=== PATIENT | female | born 1960 | race American Indian/Alaskan Native ===

== ENCOUNTER 2016-11-03 09:34 | Outpatient (CLI) | payer BC ==
--- NOTE | 2016-11-03 10:23 | Mammography Report ---
RIGHT DIGITAL DIAGNOSTIC MAMMOGRAM and RIGHT BREAST ULTRASOUND: 11/03/16 09:34:00 CLINICAL: Recalled for asymmetry. COMPARISON:10/08/16 screening FINDINGS: ML and spot compression MLO and CC views were performed. An oval circumscribed density persists on all views at 6 o'clock. Ultrasound of the right breast was performed and demonstrated a benign cyst at 6 o'clock 2.5 cm from the nipple. It measures 6 x 4 x 5 mm and correlates with the mammographic finding. No solid mass. IMPRESSION: Benign 6 mm right breast cyst. BI-RADS CATEGORY: 2 - - Benign RECOMMENDATION: Routine mammographic screening in one year. ACR BI-RADS MAMMOGRAPHIC CODES: 0 = Needs additional imaging evaluation; 1 = Negative; 2 = Benign; 3 = Probably benign; 4 = Suspicious; 5 = Malignant; 6 = Known biopsy-proven malignancy COMMENT: 1. Dense breast tissue, i.e., adenosis, fibrocystic changes, etc., may obscure an underlying neoplasm. 2. Approximately 10% of cancers are not detected with mammography. 3. A negative mammography report should not delay biopsy if a clinically suspicious mass is present. COMMENT: Patient follow-up letters are generated via our [employer] application.
== END 2016-11-03 09:35 | disposition home or self-care (01) ==
LOC: SPVWC 09:34
PROVIDERS: ATTEND Family Medicine
DX: N60.01 Solitary cyst of right breast (principal); R92.8 Other abnormal and inconclusive findings on diagnostic imaging of breast
CPT/HCPCS: 76642; G0206

== ENCOUNTER 2017-10-13 13:54 | Outpatient (CLI) | payer BC ==
--- NOTE | 2017-10-13 14:47 | Mammography Report ---
BILATERAL DIGITAL SCREENING MAMMOGRAM with CAD: 10/13/17 13:54:00 CLINICAL: Routine screening. COMPARISON:10/08/16 FINDINGS: The breasts are almost entirely fatty. No mass, architectural distortion or suspicious calcifications. IMPRESSION: No mammographic evidence of malignancy. BI-RADS CATEGORY: 1 - - Negative RECOMMENDATION: Routine mammographic screening in one year. COMMENT: Patient follow-up letters are generated by our [employer] application.
== END 2017-10-13 13:55 | disposition home or self-care (01) ==
LOC: SPVWC 13:54
PROVIDERS: ATTEND Surgery
DX: Z12.31 Encounter for screening mammogram for malignant neoplasm of breast (principal)
CPT/HCPCS: 77067; G0202

== ENCOUNTER 2018-01-22 15:22 | Outpatient (CLI) | payer BC ==
--- NOTE | 2018-01-23 09:46 | Magnetic Resonance Report ---
MR THORACIC SPINE WITHOUT CONTRAST HISTORY: Thoracic degenerative disc disease. TECHNIQUE: Multisequence, multiplanar MRI without IV gadolinium. COMPARISON: None. FINDINGS: There is normal height and alignment of the thoracic vertebral bodies. Normal bone marrow signal. No fracture or bone lesion. There is mild disc desiccation and narrowing at all levels. There is no evidence for significant bulging disc or focal herniation. The facet joints are in appropriate relationship. No significant facet arthropathy or facet hypertrophy is appreciated. There is moderate to severe unilateral thickening of the ligamentum flavum on the right side at T9-10 level. The ligamentum flavum measures up to 5 mm in thickness at this level and exerts mild mass effect on the right posterolateral thecal sac. No central canal stenosis is appreciated. There may be mild right neural foraminal narrowing at this level. The remainder of the thoracic ligaments are unremarkable. The thoracic spinal cord is normal size and signal intensity throughout. The conus terminates at the L1 level. IMPRESSION: No acute process. Minimal degenerative disc findings. No bulging disc or herniation. Focal thickening of the ligamentum flavum at the level of T9-10 with mild mass effect on the thecal sac as outlined above.
== END 2018-01-22 15:23 | disposition home or self-care (01) ==
LOC: MRI 15:22
PROVIDERS: ATTEND Family Medicine
DX: M51.34 Other intervertebral disc degeneration, thoracic region (principal)
CPT/HCPCS: 72146

== ENCOUNTER 2019-11-08 14:08 | Outpatient (CLI) | payer BC ==
--- NOTE | 2019-11-08 15:48 | Mammography Report ---
DIGITAL SCREENING MAMMOGRAM WITH CAD, 11/08/2019 INDICATION: Routine screening mammography. TECHNIQUE: Digital bilateral 2D mammography was obtained in the craniocaudal and mediolateral obliq ue projections. This examination was interpreted with the benefit of Computer-Aided Detection analysi s. COMPARISON: 10/20/2018 FINDINGS: Breast Density: The breasts are almost entirely fatty. There is no evidence of dominant mass, suspicious calcifications or architectural distortion in eithe r breast. IMPRESSION: No mammographic evidence of malignancy. Follow up recommendation: Routine yearly BI-RADS Category 1: Negative. A "normal" or negative report should not discourage follow up or biopsy of a clinically significant f inding. A written summary of these findings will be mailed to the patient. The patient will be entered into a mammography reporting system which will generate a reminder letter for the patient's next appointmen t at the appropriate interval. The [employer] recommends yearly mammograms starting at age 40 and continuing as l farida as a woman is in good health. Breast MRI is recommended for women with an approximate 20-25% or greater lifetime risk of breast cancer, including women with a strong family history of breast or ova fatoumata cancer or who have been treated for Hodgkin's disease. Signer Name: Kp Beard MD Signed: 11/08/2019 3:43 PM Workstation Name: [id number]
== END 2019-11-08 14:09 | disposition home or self-care (01) ==
LOC: SPVWC 14:08
PROVIDERS: ATTEND Surgery
DX: Z12.31 Encounter for screening mammogram for malignant neoplasm of breast (principal); N64.89 Other specified disorders of breast
CPT/HCPCS: 77067

== ENCOUNTER 2020-11-13 14:22 | Outpatient (CLI) | payer BC, OTHER ==
--- NOTE | 2020-11-13 15:16 | Mammography Report ---
DIGITAL SCREENING MAMMOGRAM WITH CAD, 11/13/2020 CLINICAL INFORMATION / INDICATION: Routine screening mammography. SCREENING MAMMOGRAM TECHNIQUE: Digital bilateral 2D mammography was obtained in the craniocaudal and mediolateral obliqu e projections. This examination was interpreted with the benefit of Computer-Aided Detection analysis . COMPARISON: 10/08/2016 through 11/08/2019. FINDINGS: Breast Density: The breasts are almost entirely fatty. No dominant mass, suspicious calcifications, or architectural distortion in either breast. IMPRESSION: No mammographic evidence of malignancy. Follow up recommendation: Routine yearly BI-RADS Category 1: Negative. A "normal" or negative report should not discourage follow up or biopsy of a clinically significant f inding. A written summary of these findings will be mailed to the patient. The patient will be entered into a mammography reporting system which will generate a reminder letter for the patient's next appointmen t at the appropriate interval. The [employer] recommends yearly mammograms starting at age 40 and continuing as l farida as a woman is in good health. Breast MRI is recommended for women with an approximate 20-25% or greater lifetime risk of breast cancer, including women with a strong family history of breast or ova fatoumata cancer or who have been treated for Hodgkin's disease. Signer Name: Venkat Carrillo MD Signed: 11/13/2020 3:11 PM Workstation Name: [id number]
== END 2020-11-13 14:23 | disposition home or self-care (01) ==
LOC: SPVWC 14:22
PROVIDERS: ATTEND Surgery
DX: Z12.31 Encounter for screening mammogram for malignant neoplasm of breast (principal)
CPT/HCPCS: 77067

== ENCOUNTER 2021-11-19 10:14 | Outpatient (CLI) | payer OTHER ==
--- NOTE | 2021-11-19 15:04 | Mammography Report ---
DIGITAL SCREENING MAMMOGRAM WITH CAD, 11/19/2021 CLINICAL INFORMATION / INDICATION: Routine screening mammography. SCREENING MAMMO TECHNIQUE: Digital bilateral 2D mammography was obtained in the craniocaudal and mediolateral obliqu e projections. This examination was interpreted with the benefit of Computer-Aided Detection analysis . COMPARISON: 11/13/2019 FINDINGS: Breast Density: There are scattered areas of fibroglandular density. No dominant mass, suspicious calcifications, or architectural distortion in either breast. IMPRESSION: No mammographic evidence of malignancy. Follow up recommendation: Routine yearly BI-RADS Category 1: NEGATIVE A "normal" or negative report should not discourage follow up or biopsy of a clinically significant f inding. A written summary of these findings will be mailed to the patient. The patient will be entered into a mammography reporting system which will generate a reminder letter for the patient's next appointmen t at the appropriate interval. The [employer] recommends yearly mammograms starting at age 40 and continuing as l farida as a woman is in good health. Breast MRI is recommended for women with an approximate 20-25% or greater lifetime risk of breast cancer, including women with a strong family history of breast or ova fatoumata cancer or who have been treated for Hodgkin's disease. Signer Name: Harman Rivero MD Signed: 11/19/2021 3:00 PM Workstation Name: [id number]
== END 2021-11-19 10:15 | disposition home or self-care (01) ==
LOC: SPVWC 10:14
PROVIDERS: ATTEND Surgery
DX: Z12.31 Encounter for screening mammogram for malignant neoplasm of breast (principal)
CPT/HCPCS: 77067